=== PATIENT | female | born 1965 | race Caucasian/White ===

== ENCOUNTER → 2017-01-23 | Day surgery (SDC) | payer OTHER ==
[~2017-01-23] MED LIST: BUPIVACAINE/EPINEPHRINE 0.5% 50 ML VIAL ONE; EPINEPHrine HCL (1:1000) 1 MG/ML VIAL OTHER ONE; LACTATED RINGER'S 1000 ML INJ 1,000 ML ONE; MIDAZOLAM HCL 2 MG/2 ML VIAL ONE; ONDANSETRON HCL 4 MG/2 ML VIAL IV PUSH ONE; PROPOFOL 200 MG/20 ML AMP IV ONE; TRIAMCINOLONE ACETONIDE 40 MG/ML VIAL ONE; ceFAZolin INJ 1,000 MG VIAL ONE
--- NOTE | 2017-01-23 22:52 | MP ---
cc: KAYLIN CABRERA MD DATE OF SURGERY 01/23/17 PREOPERATIVE DIAGNOSIS Left knee medial meniscal tear and chondromalacia of the medial femoral condyle. POSTOPERATIVE DIAGNOSIS Left knee medial meniscal tear and chondromalacia of the medial femoral condyle. SURGEON Prerna Cabrera MD MEND WORKER JIM Strange MEND WORKER JIM Xiao The surgical procedure was assisted by my Advanced Registered Nurse Practitioner. My EMISSIONS ENGINEER presence was necessary throughout this case for the manipulation and positioning of the surgical extremity. My EMISSIONS ENGINEER was assisting me throughout the duration of this procedure. The skill set of an Advance Registered Nurse Practitioner was medically necessary to complete this procedure. During the surgical case, the radiographic technologist was working at the back table and the Advance Registered Nurse Practitioner was directly assisting me. PROCEDURE left knee arthroscopic partial medial meniscectomy and chondroplasty of the medial femoral condyle. ESTIMATED BLOOD LOSS Minimal ANESTHESIA General TOURNIQUET TIME 0 minutes PROCEDURE IN DETAIL The patient was brought back to the operative theater. General anesthesia was administered. She received intravenous Ancef. The left lower extremity was prepped and draped in usual sterile fashion. We made standard inferolateral portal followed by inferomedial portal under spinal needle visualization. We found mild to moderate synovitis in the suprapatellar pouch with no loose bodies. There was some diffuse chondromalacia of the patella and the trochlea. This is grade II in nature. The medial femoral condyle had mostly grade 2 chondromalacia, but there were some areas of grade 3 chondromalacia with some unstable segments of cartilage. There was a complex tear of the medial meniscus which encompassed the body and the posterior horn as it got into the posterior horn it became deep cleavage and in the body it became rather complex with a portion of the meniscus subluxed between the meniscus and the proximal tibia. We needed a probe to dislodge this. We used a combination of meniscal biter and oscillating shaver to perform a partial medial meniscectomy about the body and the posterior horn. Ultimately, we removed approximately 30% of the meniscus. We found no further unstable edges to the meniscus. We performed a chondroplasty of the medial femoral condyle using an oscillating shaver only removing a small amount of cartilage. The anterior cruciate ligament was found to be intact. Lateral compartment had minimal chondromalacia and no lateral meniscal tear. There were no loose bodies in the medial lateral gutters. We made sure there were no free bodies after performing the meniscectomy. We went back into the suprapatellar pouch and looked in this area as well. The. Arthroscopic portals were closed after interarticular injection was given with 40 mg of Kenalog and 30 mL of 0.25% Marcaine. The arthroscopic portals were closed with 2-0 Vicryl followed by 3-0 nylon. The leg was dressed. Postop plan is weight bear as tolerated. MD TRE Lancsater/ /3:45 PM /10:47 PM
== END | disposition home or self-care (01) ==
LOC: ESDC 12:55
PROVIDERS: ATTEND Orthopaedic Surgery
DX: S83.232A Complex tear of medial meniscus, current injury, left knee, initial encounter (principal); M22.42 Chondromalacia patellae, left knee
CPT/HCPCS: 01400; 29881; J0171; J0690; J2250; J2405; J3010; J3301; J7120